=== PATIENT | female | born 1970 | race Caucasian/White ===

== ENCOUNTER 2016-12-13 16:01 | Emergency (ER) | payer BC ==
[2016-12-13 16:18] VITALS: BP 144/85
--- NOTE | 2016-12-13 17:30 | ED ---
Neck Pain - HPI Summary HPI Summary: 46 female presents with complaints of neck/supraclavicular swelling that began this morning 12/13/16 and rapidly progressed throughout the day. She denies difficulty breathing, SOB and chest pain. However she complains of feeling like a pill is stuck in her throat. She states she had this same swelling and episode last year and did not have a definitive diagnosis at that time to what it was from. She was seen here and diagnosed with b/l pulmonary effusions and angioedema of unknown cause. She has seen several specialist included rheumatoloy, heme-onc, and generation engineer last year without any diagnoses. She denies any pain. She admits to both episodes occurring after exertion and running marathons. Patient does yoga twice a week and runs frequently however for the past 3 weeks she hasn't because of other issues and just started to run again this past weekend, running 3 miles. She relates it to possibly being from exertion. Last year the swelling went away on its own. She took some benedryl for this swelling earlier today because she did not know what else to do. Patient wants answers and is anxious about her symptom. - History of Current Complaint Chief Complaint: EDGeneral Stated Complaint: NECK SWOLLEN/TIGHTNESS IN CHEST Time Seen by Provider: 12/13/16 16:48 Hx Obtained From: Patient Hx Last Menstrual Period: 2 WEEKS AGO Onset/Duration Of Injury/Symptoms: Hours Mechanism Of Injury: No Known Trauma Timing: Constant Onset/Duration: Sudden Onset Severity Currently: None Pain Intensity: 0 Pain Scale Used: 0-10 Numeric - Allergies/Home Medications Allergies/Adverse Reactions: Allergies Allergy/AdvReac Type Severity Reaction Status Date / Time Sulfa Drugs Allergy Intermediate Rash Verified 12/29/15 16:50 PMH/Surg Hx/FS Hx/Imm Hx Endocrine/Hematology History: Denies: Hx Anticoagulant Therapy, Hx Diabetes, Hx Thyroid Disease Cardiovascular History: Denies: Hx Congestive Heart Failure, Hx Deep Vein Thrombosis, Hx Hypertension , Hx Myocardial Infarction, Hx Pacemaker/ICD Respiratory History: Denies: Hx Asthma, Hx Chronic Obstructive Pulmonary Disease (COPD), Hx Lung Cancer, Hx Pneumonia, Hx Pulmonary Embolism GI History: Denies: Hx Gall Bladder Disease, Hx Gastrointestinal Bleed, Hx Ulcer, Hx Urosepsis History: Denies: Hx Kidney Stones, Hx Renal Disease Musculoskeletal History: Denies: Hx Rheumatoid Arthritis, Hx Osteoporosis Sensory History: Denies: Hx Hearing Aid Neurological History: Denies: Hx Dementia, Hx Migraine, Hx Seizures, Hx Transient Ischemic Attacks (TIA) Psychiatric History: Denies: Hx Anxiety, Hx Depression, Hx Panic Disorder, Hx Schizophrenia, Hx Bipolar Disorder - Surgical History Surgery Procedure, Year, and Place: tonsillectomy Infectious Disease History: No Infectious Disease History: Denies: Traveled Outside the [place] in Last 30 Days - Family History Known Family History: Positive: None - Social History Alcohol Use: Occasionally Substance Use Type: Reports: None Smoking Status (MU): Never Smoked Tobacco Review of Systems Constitutional: Negative Eyes: Negative ENT: Negative Positive: Other - throat feels like pill is stuck in there Cardiovascular: Negative Respiratory: Negative Gastrointestinal: Negative Genitourinary: Negative Musculoskeletal: Negative Positive: Other - edema of supraclavicular area Neurological: Negative Psychological: Normal All Other Systems Reviewed And Are Negative: Yes Physical Exam Triage Information Reviewed: Yes Vital Signs On Initial Exam: Initial Vitals Temp Pulse Resp BP Pulse Ox 98.6 F 75 16 144/85 100 12/13/16 16:12 12/13/16 16:12 12/13/16 16:12 12/13/16 16:12 12/13/16 16:12 Vital Signs Reviewed: Yes Appearance: Positive: Well-Appearing, No Pain Distress, Well-Nourished Skin: Positive: Warm, Skin Color Reflects Adequate Perfusion, Dry, Other - edema / swelling of left supraclavicular area. no firm nodules or abscess palpated. swelling appeared to be fluid filled. no erythema, ecchymosis or signs of infection noted.. Negative: Lymphangitis Head/Face: Positive: Normal Head/Face Inspection Eyes: Positive: Normal, Conjunctiva Clear ENT: Positive: Normal ENT inspection, Hearing grossly normal, Pharynx normal Neck: Positive: Supple, Nontender, No Lymphadenopathy, Other: - besides swelling of left supraclavicular area noted above. Negative: Tenderness @, Enlarged Nodes @ Respiratory/Lung Sounds: Positive: Clear to Auscultation, Breath Sounds Present. Negative: Rales, Rhonchi, Stridor, Tracheal Deviation, Wheezes, Unable to speak in full sentences, Fatigue Cardiovascular: Positive: Normal, RRR, Pulses are Symmetrical in both Upper and Lower Extremities. Negative: Leg Edema Left, Leg Edema Right Musculoskeletal: Positive: Normal, Strength/ROM Intact Neurological: Positive: Normal, Sensory/Motor Intact, Alert, Oriented to Person Place, Time Psychiatric: Positive: Normal, Affect/Mood Appropriate Diagnostics - Vital Signs Vital Signs Temp Pulse Resp BP Pulse Ox 12/13/16 16:12 98.6 F 75 16 144/85 100 - Laboratory Lab Statement: Any lab studies that have been ordered have been reviewed, and results considered in the medical decision making process. - Radiology chest Xray Interpretation: No Acute Changes - There is soft tissue swelling in the left supraclavicular region. No active cardiopulmonary disease is noted. Radiology Interpretation Completed By: Radiologist - Ultrasound No standard instances Ultrasound Interpretation: Positive (See Comments) - Interstitial edema involving the left supraclavicular area without focal mass. Ultrasound Interpretation Completed By: Radiologist Neck Course/Dx - Course Course Of Treatment: U/S and chest x-ray obtained due to findings and history of symptoms. patient was not in any pain or discomfort. no need for medication at this time. patient was healthy without medical problems. no relief from prior benedryl she took before arrival. will be referred to specialist again at this time. no concern for emergent conditions at this time. - Diagnoses Differential Dx/HQI/PQRI: Positive: Adenitis, Sprain, Strain, Other Provider Diagnoses: Neck swelling, Edema Discharge - Discharge Plan Condition: Stable Disposition: HOME Referrals: Tanya Conroy MDlotte [Primary Care Provider] - Phil Jamison MD [Medical Doctor] - Blair Rushing MD [Medical Doctor] - Additional Instructions: Please call and make another appointment for the specialist we discussed and your PCP. If symptoms worsen such as difficulty breathing, chest pain, increased swelling , or fever/chills please seek medical attention immediately. I hope you find an answer and when you do please let us know!
--- NOTE | 2016-12-13 18:16 | RAD ---
Indication: Tightness in the chest. 2 views of the chest including dual energy PA views demonstrates no mediastinal shift. Heart is of normal size and configuration. Lung gan are clear. There is soft tissue swelling in the left supraclavicular region. IMPRESSION: No active cardiopulmonary disease is noted.
--- NOTE | 2016-12-13 18:41 | RAD ---
Indication: Left supraclavicular swelling. Real-time sonography of the left supraclavicular area in the neck was performed. There is mild interstitial edema in the area of the palpable nodule of the left neck. The internal jugular vein and subclavian vein and artery appear patent. IMPRESSION: Interstitial edema involving the left supraclavicular area without focal mass.
== END 2016-12-13 19:30 | disposition home or self-care (01) ==
LOC: ED 16:01
DX: R22.1 Localized swelling, mass and lump, neck (principal); R60.0 Localized edema
CPT/HCPCS: 71020; 76536; 99281